=== PATIENT | female | born 1970 | race Hispanic/Latino ===

== ENCOUNTER 2023-12-06 05:40 | Day surgery (SDC) | payer OTHER, MEDICARE ==
[2023-12-02 15:33] LABS: BASOPHILS # (AUTO) 0.04 K/uL (0.00-0.20); BASOPHILS % (AUTO) 0.4 % (0.0-5.0); EOSINOPHILS # (AUTO) 0.15 K/uL (0.00-0.70); EOSINOPHILS % (AUTO) 1.7 % (0.0-8.0); HEMATOCRIT 35.2 % (36-48); IMMATURE GRANULOCYTE ABSOLUTE 0.02 K/uL (0-1); LYMPHOCYTES # (AUTO) 1.7 K/uL (1.0-4.8); LYMPHOCYTES % (AUTO) 19.4 % (21.0-51.0); MEAN CORPUSCULAR HEMOGLOBIN 30.4 pg (27.0-33.0); MEAN CORPUSCULAR VOLUME 92.4 fL (79-99); MONOCYTES # (AUTO) 0.5 K/uL (0.1-1.0); MONOCYTES % (AUTO) 5.5 % (3.0-13.0); NEUTROPHILS # (AUTO) 6.5 K/uL (1.8-7.7); NEUTROPHILS % (AUTO) 72.8 % (40.0-77.0); PLATELET COUNT (AUTO) 282 K/uL (130-400); RED BLOOD CELL COUNT(AUTO) 3.81 MIL/uL (4.00-5.50); RED CELL DISTRIBUTION WIDTH 13.8 % (11.0-15.5); WHITE BLOOD COUNT (AUTO) 8.9 K/uL (4.8-10.8)
[2023-12-02 15:46] LABS: CREATININE 4.3 mg/dL (0.5-1.5); POTASSIUM 3.4 mmol/L (3.5-5.1)
[2023-12-02 15:49] LABS: INR <= 0.93 (0.85-1.15); PROTHROMBIN TIME 10.6 SEC (9.6-11.6)
[2023-12-02 15:50] LABS: PARTIAL THROMBOPLASTIN TIME 30.9 SEC (26.3-35.5)
[2023-12-02 16:19] VITALS: BP 180/78; PULSE 80; RESP 19
[~2023-12-06] VITALS: Ht 157.5 cm; Wt 98.2 kg
[2023-12-06] VITALS (14 sets, daily range): BP systolic 135–198; BP diastolic 49–93; PULSE 72–81; RESP 14–16
[~2023-12-06 05:40] MED LIST: HUM10VIA SQ; HYDR25TA67 PO; OLAN2.5T29 PO; ROSU10TA28 PO; SEMA0.258 SQ
[2023-12-06] MEDS ORDERED: NALOXONE HCL 0.4 MG/1 ML ML ONE (07:11)
[2023-12-06] MEDS ORDERED: FLUMAZENIL 0.1MG/1ML 5ML VIAL IV ONE (07:11)
[2023-12-06] MEDS: LIDOCAINE HCL 2% VISCOUS 15 ML UDCUP PO ONE (07:15)
[2023-12-06] MEDS: 0.9%NACL 1000ML 1,000 ML IV ONE (07:16)
[2023-12-06] MEDS: MIDAZOLAM HCL 1 MG/ML 2ML VIAL IVP ONE (08:55)
[2023-12-06] MEDS: FENTANYL CITRATE PF 50 MCG/1 ML 2ML VIAL IVP ONE (08:57)
== END 2023-12-06 10:00 | disposition home or self-care (01) ==
LOC: DAH 05:40 → EDSTATUS 18:00
PROVIDERS: ATTEND Internal Medicine
DX: I08.0 Rheumatic disorders of both mitral and aortic valves (principal); E78.5 Hyperlipidemia, unspecified; E11.22 Type 2 diabetes mellitus with diabetic chronic kidney disease; I12.0 Hypertensive chronic kidney disease with stage 5 chronic kidney disease or end stage renal disease; N18.6 End stage renal disease; Z99.2 Dependence on renal dialysis; Z79.4 Long term (current) use of insulin; Z82.49 Family history of ischemic heart disease and other diseases of the circulatory system; Z83.3 Family history of diabetes mellitus; Z98.890 Other specified postprocedural states
CPT/HCPCS: 80048; 84703; 85025; 85610; 85730; 36415; 93005; 82948; 93325; 93312; J3010; J7030; J2250; A4615; A4215; A4223 ×3; A4657; A7002; A4222; A4221; A4663; A4216; A4606; 99152; J2310; J3490; G0500